=== PATIENT | male | born 1950 | race Caucasian/White ===

== ENCOUNTER 2018-04-09 14:08 | Emergency (ER) | payer BC, OTHER ==
[~2018-04-09] VITALS: Ht 175.3 cm; Wt 95.3 kg
[~2018-04-09 14:08] MED LIST: ATENOLOL
--- NOTE | 2018-04-09 14:25 | NUR ---
Patient to ER bed 04 to gown for evaluation. Side rails up.
--- NOTE | 2018-04-09 14:30 | NUR ---
Pt brought by self, A&Ox4, pt presents to ER with L hip pain , states he has Hx of knee replacement several years ago, denies trauma, skin pink and warm, cap refill<3, VS WNL.
[2018-04-09 14:33] VITALS: BP_SYST 166
--- NOTE | 2018-04-09 14:55 | NUR ---
Taken to radiology for exam. Will follow up upon arrival back to unit
[2018-04-09] MEDS ORDERED: KETOROLAC TROMETHAMINE 60 MG/2 ML VIAL IM ONE (15:15)
--- NOTE | 2018-04-09 15:15 | NUR ---
ER at bedside examining patient.
--- NOTE | 2018-04-09 15:29 | NUR ---
Pain medication was given to pt, tolerated well
[2018-04-09 15:40] VITALS: BP_SYST 145
--- NOTE | 2018-04-09 15:40 | NUR ---
Patient given written and verbal discharge instructions and verbalizes understanding. ER MD discussed with patient the results and treatment provided. Patient in stable condition. ID arm band removed. Rx of tramadol given. Patient educated on pain management and to follow up with PMD. Pain Scale 3. Opportunity for questions provided and answered. Medication side effect fact sheet provided.
== END 2018-04-09 15:40 | disposition home or self-care (01) ==
LOC: SED 14:08
DX: G89.29 Other chronic pain (principal); M25.552 Pain in left hip; E78.00 Pure hypercholesterolemia, unspecified; F41.9 Anxiety disorder, unspecified; F32.9 Major depressive disorder, single episode, unspecified; I10 Essential (primary) hypertension; Z90.49 Acquired absence of other specified parts of digestive tract; Z85.46 Personal history of malignant neoplasm of prostate
CPT/HCPCS: 73502; 96372; 99283; J1885

== ENCOUNTER 2018-04-11 15:03 | Emergency (ER) | payer OTHER ==
[~2018-04-11] VITALS: Ht 177.8 cm; Wt 95.3 kg
[2018-04-11 15:25] VITALS: BP_SYST 150
--- NOTE | 2018-04-11 15:30 | NUR ---
Patient triaged and placed in waiting room. VSS and patient appears in no acute distress at this time. Accompanied by self, awaiting available bed, and MD notified of need for MSE.
--- NOTE | 2018-04-11 16:30 | NUR ---
Patient to ER bed 02 to gown for evaluation. Side rails up. Report given to INO CATES.
--- NOTE | 2018-04-11 17:00 | NUR ---
Patient arrived with a PMH of left hip arthroplasty presents to the ER for left hip pain. The patient saw his PMD for this and was prescribed [place] 10/325mg-however, the patient was unable to pick this up from the pharmacy due to the wrong triplicate form being used. He states that he experiences 5/10 pain when ambulating. No fevers/chills, and he denies any accidents/injuries. He was seen in our ER 2 days ago and his pelvis xray was normal at that time
--- NOTE | 2018-04-11 17:12 | NUR ---
ER at bedside examining patient.
--- NOTE | 2018-04-11 18:29 | NUR ---
Patient given written and verbal discharge instructions and verbalizes understanding. ER MD discussed with patient the results and treatment provided. Patient in stable condition. ID arm band removed. Rx of NORCO given. Patient educated on pain management and to follow up with PMD. Pain Scale 0/10. Opportunity for questions provided and answered. Medication side effect fact sheet provided.
[2018-04-11 18:39] VITALS: BP_SYST 138
== END 2018-04-11 18:29 | disposition home or self-care (01) ==
LOC: SED 15:03
DX: M16.12 Unilateral primary osteoarthritis, left hip (principal); M70.72 Other bursitis of hip, left hip; E78.00 Pure hypercholesterolemia, unspecified; F41.9 Anxiety disorder, unspecified; F32.9 Major depressive disorder, single episode, unspecified; I10 Essential (primary) hypertension; Z85.46 Personal history of malignant neoplasm of prostate
CPT/HCPCS: 99283

== ENCOUNTER 2022-02-11 10:29 | Emergency (ER) | payer OTHER ==
[~2022-02-11] VITALS: Ht 175.3 cm; Wt 100.7 kg
--- NOTE | 2022-02-11 10:48 | NUR ---
Patient to ER bed 6 to gown for evaluation. Side rails up. Report given to GRISELDA.
--- NOTE | 2022-02-11 10:58 | NUR ---
71 years old male presents to er c/o chest pain with sob denies nausea vomiting.
[2022-02-11] MEDS ORDERED: ASPIRIN 81 MG TAB.CHEW PO ONE (11:15)
[2022-02-11 11:44] LABS: BASOPHILS # (AUTO) 0.1 K/uL (0.0-0.2); BASOPHILS % (AUTO) 1.1 % (0.0-2.0); EOSINOPHILS # (AUTO) 0.2 K/uL (0.0-0.4); EOSINOPHILS % (AUTO) 2.8 % (0.0-4.0); HEMATOCRIT 39.3 % (36-54); HEMOGLOBIN 13.4 g/dL (14.0-18.0); LYMPHOCYTES # (AUTO) 1.4 K/uL (1.0-5.5); LYMPHOCYTES % (AUTO) 24.5 % (20.5-51.5); MEAN CORPUSCULAR HEMOGLOBIN 30 pg (27-31); MEAN CORPUSCULAR HGB CONC 34 % (32-36); MEAN CORPUSCULAR VOLUME 89 fL (79.0-98.0); MONOCYTES # (AUTO) 0.5 K/uL (0.0-1.0); MONOCYTES % (AUTO) 8.7 % (1.7-9.3); NEUTROPHILS # (AUTO) 3.5 K/uL (1.8-7.7); NEUTROPHILS % (AUTO) 62.9 % (40.0-70.0); PLATELET COUNT (AUTO) 160 K/uL (130-430); RED BLOOD CELL COUNT(AUTO) 4.43 MIL/uL (4.2-6.2); WHITE BLOOD COUNT (AUTO) 5.6 K/uL (4.8-10.8)
[2022-02-11 11:53] LABS: ANION GAP 7 (5-15); CALCIUM 9.1 mg/dL (8.4-11.0); CHLORIDE 107 mmol/L (98-107); GLUCOSE 91 mg/dL (70-99); UREA NITROGEN, BLOOD 21 mg/dL (8-21)
[2022-02-11 12:02] LABS: ALANINE AMINOTRANSFERASE 24 U/L (12-78); ALBUMIN 3.7 g/dL (3.4-4.8); ASPARTATE AMINOTRANSFERASE 23 U/L (10-37); TOTAL BILIRUBIN 0.5 mg/dL (0.0-1.0)
[2022-02-11] MEDS ORDERED: iohexoL 350 mgI/mL, 100 ML INFUS..BTL IV ONE (14:15)
[2022-02-11 14:33] VITALS: BP_SYST 140
--- NOTE | 2022-02-11 14:35 | NUR ---
patient eloped alert, oriented x4 Dr Tan notified.
== END 2022-02-11 14:33 | disposition left against medical advice (07) ==
LOC: SED 10:29
DX: K44.9 Diaphragmatic hernia without obstruction or gangrene (principal); R07.89 Other chest pain; R06.02 Shortness of breath; I10 Essential (primary) hypertension; Z79.899 Other long term (current) drug therapy; Z20.822 Contact with and (suspected) exposure to COVID-19
CPT/HCPCS: 99285; 71275; 71045; 87426; 80053; 83880; 85025; 84484; 36415; 93005; 76376; Q9967